=== PATIENT | female | born 1995 | race Caucasian/White ===

== ENCOUNTER 2017-05-11 15:46 | Emergency (ER) | payer OTHER ==
[~2017-05-11] VITALS: Wt 71.8 kg
[~2017-05-11 15:46] MED LIST: IBUP-1542 PO; MEDR10TA2 PO; NO CURRENT MEDS
--- NOTE | 2017-05-11 17:21 | ERD ---
ER Documentation Chief Complaint Chief Complaint HEMORROID BLEEDING AND PAIN HPI 21-year-old female with a history of hemorrhoids presents with a chief complaint of rectal bleeding. No change in symptoms over the past 2-3 months. Worse with riding bikes and lifting. States hemorrhoids protrude and do not spontaneously reduce but are reducible with manual reduction. No mucus described. Blood quantified as minimal and not worsening in quantity. Saw PCP yesterday who gave her a referral for surgery but gave her an [id number] cream and she is wanting something stronger. Denies dizziness, lightheadedness , constipation, fever or chills. Patient has no other complaints and describes no other associated manifestations. Nursing notes have been reviewed and are consistent with history given. ROS All systems reviewed and are negative except as per history of present illness. Medications Home Meds Active Scripts Ibuprofen* (Motrin*) 600 Mg Tab, 600 MG PO Q6, #14 TAB Prov:EVELYN RODRIGUEZ MD 06/01/15 Medroxyprogesterone Acetate* (Provera*) 10 Mg Tablet, 10 MG PO DAILY for 5 Days , TAB Prov:EVELYN RODRIGUEZ MD 06/01/15 Reported Medications [No Current Meds] No Conflict Check 03/05/10 Allergies Allergies: Coded Allergies: No Known Drug Allergies (Verified Allergy, Mild, 06/01/15) PMhx/Soc Medical and Surgical Hx: pt denies Medical Hx, pt denies Surgical Hx History of Surgery: No Anesthesia Reaction: No Hx Neurological Disorder: No Hx Respiratory Disorders: No Hx Cardiac Disorders: No Hx Psychiatric Problems: No Hx Miscellaneous Medical Probl: No Hx Alcohol Use: No Hx Substance Use: No Hx Tobacco Use: No Smoking Status: Never smoker Physical Exam Vitals Vital Signs Date Time Temp Pulse Resp B/P Pulse Ox O2 Delivery O2 Flow Rate FiO2 05/11/17 15:53 98.2 75 20 120/80 99 Physical Exam Head: Atraumatic Eyes: Normal Conjunctiva Resp: Clear to auscultation bilaterally Cardio: Regular rate and rhythm, no murmurs. Cap refill less than 2 seconds. Radial pulses 2+ bilaterally. Abd: Soft, non tender, non distended. Normal bowel sounds Neur: Awake and alert Psych: Normal Mood and Affect Procedures/MDM 21-year-old female presents with signs and symptoms most consistent with stage III internal hemorrhoids. Patient is on the correct medications given by PCP. I discussed with her about the importance of following up with surgery as previously discussed with her PCP. Patient has verbally respond that she understands. Sufficient education was discussed with the patient concerning her condition.She have verbally responded that they understand their status and treatment plan. The patients vitals are stable, and their current condition is appropriate for discharge. The patient will be given discharge instructions with return precautions. Departure Diagnosis: Primary Impression: Hemorrhoids Hemorrhoid type: third degree Qualified Code: K64.2 - Grade III hemorrhoids Condition: Stable Patient Instructions: Treating Hemorrhoids: Self-Care, Treating Hemorrhoids: Surgery Referrals: VIJAY MARTINEZ MD,MAINE DOLAN MD,ROBERT GORDON,NARINDER CLAROS,LEOBARDO WESLEY,[facility] YOU HAVE RECEIVED A MEDICAL SCREENING EXAM AND THE RESULTS INDICATE THAT YOU DO NOT HAVE A CONDITION THAT REQUIRES URGENT TREATMENT IN THE EMERGENCY DEPARTMENT. FURTHER EVALUATION AND TREATMENT OF YOUR CONDITION CAN WAIT UNTIL YOU ARE SEEN IN YOUR DOCTORS OFFICE WITHIN THE NEXT 1-2 DAYS. IT IS YOUR RESPONSIBILITY TO MAKE AN APPOINTMENT FOR FOLOW-UP CARE. IF YOU HAVE A PRIMARY DOCTOR --you should call your primary doctor and schedule and appointment IF YOU DO NOT HAVE A PRIMARY DOCTOR YOU CAN CALL OUR PHYSICIAN REFERRAL HOTLINE AT . IF YOU CAN NOT AFFORD TO SEE A PHYSICIAN YOU CAN CHOSE FROM THE FOLLOWING [facility] INSTITUTIONS: [facility] [address] [place] [address] [facility] [address] [place] [address] [facility] [address] [place] [address] [facility] () Usted se aviles hecho un examen mdico de control que le indica que no est en barbara condicin que requiera tratamiento urgente en el Departamento de Emergencia. Un estudio ms profundo y el tratamiento de matias condicin pueden esperar sin ningn riesgo hasta que usted sea atendida/o en el consultorio de matias mdico o barbara cl brynn. Es responsabilidad suya arreglar barbara nabeel para el seguimiento del saima. MANEJO DE CONDICIONES NO URGENTES EN EL FUTURO 1) Si usted tiene un mdico de atencin primaria: Usted debera llamar a matias mdico de atencin primaria antes de venir al departamento de emergencia. Despus de las horas de consultorio, matias doctor o matias asociado/a est disponible por telfono. El mdico o enfermero de artie en el servicio telefnico puede asesorarle por nalini medio para atender el problema, o saima contrario se puede programar barbara nabeel. 2) Si usted no tiene un mdico de atencin primaria: Llame al mdico o condado institucions de referencia que aparece abajo marcelina las horas de consultorio para hacer barbara nabeel para que le vean. SI USTED NO PUEDE PAGAR PARA KELLIE UN MEDICO puede ir a: [facility] [address] [place] [address] [facility] [address] [place] [address] [facility] [address] [place] [address] [place] [phone] Additional Instructions: Follow up with your PCP within the next 1-3 days for a more thorough evaluation and a possible referral to a specialist. Return the the emergency department immediately if symptoms worsen or change. If you have any questions regarding medications, ask your pharmacist or us before you leave. If any adverse reactions occur while taking your medications, discontinue the treatment and return to the emergency department immediately. Take your medications as directed, and complete the entire course of treatment. LOIS MEDINA PA-C May 11, 2017 17:21
--- NOTE | 2017-05-11 17:21 | ERD ---
ER Documentation Chief Complaint Chief Complaint HEMORROID BLEEDING AND PAIN HPI 21-year-old female with a history of hemorrhoids presents with a chief complaint of rectal bleeding. No change in symptoms over the past 2-3 months. Worse with riding bikes and lifting. States hemorrhoids protrude and do not spontaneously reduce but are reducible with manual reduction. No mucus described. Blood quantified as minimal and not worsening in quantity. Saw PCP yesterday who gave her a referral for surgery but gave her an [id number] cream and she is wanting something stronger. Denies dizziness, lightheadedness , constipation, fever or chills. Patient has no other complaints and describes no other associated manifestations. Nursing notes have been reviewed and are consistent with history given. ROS All systems reviewed and are negative except as per history of present illness. Medications Home Meds Active Scripts Ibuprofen* (Motrin*) 600 Mg Tab, 600 MG PO Q6, #14 TAB Prov:EVELYN RODRIGUEZ MD 06/01/15 Medroxyprogesterone Acetate* (Provera*) 10 Mg Tablet, 10 MG PO DAILY for 5 Days , TAB Prov:EVELYN RODRIGUEZ MD 06/01/15 Reported Medications [No Current Meds] No Conflict Check 03/05/10 Allergies Allergies: Coded Allergies: No Known Drug Allergies (Verified Allergy, Mild, 06/01/15) PMhx/Soc Medical and Surgical Hx: pt denies Medical Hx, pt denies Surgical Hx History of Surgery: No Anesthesia Reaction: No Hx Neurological Disorder: No Hx Respiratory Disorders: No Hx Cardiac Disorders: No Hx Psychiatric Problems: No Hx Miscellaneous Medical Probl: No Hx Alcohol Use: No Hx Substance Use: No Hx Tobacco Use: No Smoking Status: Never smoker Physical Exam Vitals Vital Signs Date Time Temp Pulse Resp B/P Pulse Ox O2 Delivery O2 Flow Rate FiO2 05/11/17 15:53 98.2 75 20 120/80 99 Physical Exam Head: Atraumatic Eyes: Normal Conjunctiva Resp: Clear to auscultation bilaterally Cardio: Regular rate and rhythm, no murmurs. Cap refill less than 2 seconds. Radial pulses 2+ bilaterally. Abd: Soft, non tender, non distended. Normal bowel sounds Neur: Awake and alert Psych: Normal Mood and Affect Procedures/MDM 21-year-old female presents with signs and symptoms most consistent with stage III internal hemorrhoids. Patient is on the correct medications given by PCP. I discussed with her about the importance of following up with surgery as previously discussed with her PCP. Patient has verbally respond that she understands. Sufficient education was discussed with the patient concerning her condition.She have verbally responded that they understand their status and treatment plan. The patients vitals are stable, and their current condition is appropriate for discharge. The patient will be given discharge instructions with return precautions. Departure Diagnosis: Primary Impression: Hemorrhoids Hemorrhoid type: third degree Qualified Code: K64.2 - Grade III hemorrhoids Condition: Stable Patient Instructions: Treating Hemorrhoids: Self-Care, Treating Hemorrhoids: Surgery Referrals: VIJAY MARTINEZ MD,MAINE DOLAN MD,ROBERT GORDON,NARINDER CLAROS,LEOBARDO WESLEY,[facility] YOU HAVE RECEIVED A MEDICAL SCREENING EXAM AND THE RESULTS INDICATE THAT YOU DO NOT HAVE A CONDITION THAT REQUIRES URGENT TREATMENT IN THE EMERGENCY DEPARTMENT. FURTHER EVALUATION AND TREATMENT OF YOUR CONDITION CAN WAIT UNTIL YOU ARE SEEN IN YOUR DOCTORS OFFICE WITHIN THE NEXT 1-2 DAYS. IT IS YOUR RESPONSIBILITY TO MAKE AN APPOINTMENT FOR FOLOW-UP CARE. IF YOU HAVE A PRIMARY DOCTOR --you should call your primary doctor and schedule and appointment IF YOU DO NOT HAVE A PRIMARY DOCTOR YOU CAN CALL OUR PHYSICIAN REFERRAL HOTLINE AT . IF YOU CAN NOT AFFORD TO SEE A PHYSICIAN YOU CAN CHOSE FROM THE FOLLOWING [facility] INSTITUTIONS: [facility] [address] [place] [address] [facility] [address] [place] [address] [facility] + [facility] [address] [place] [address] [facility] () Usted se aviles hecho un examen mdico de control que le indica que no est en barbara condicin que requiera tratamiento urgente en el Departamento de Emergencia. Un estudio ms profundo y el tratamiento de matias condicin pueden esperar sin ningn riesgo hasta que usted sea atendida/o en el consultorio de matias mdico o barbara cl brynn. Es responsabilidad suya arreglar barbara nabeel para el seguimiento del saima. MANEJO DE CONDICIONES NO URGENTES EN EL FUTURO 1) Si usted tiene un mdico de atencin primaria: Usted debera llamar a matias mdico de atencin primaria antes de venir al departamento de emergencia. Despus de las horas de consultorio, matias doctor o matias asociado/a est disponible por telfono. El mdico o enfermero de artie en el servicio telefnico puede asesorarle por nalini medio para atender el problema, o saima contrario se puede programar barbara nabeel. 2) Si usted no tiene un mdico de atencin primaria: Llame al mdico o condado institucions de referencia que aparece abajo marcelina las horas de consultorio para hacer barbara nabeel para que le vean. SI USTED NO PUEDE PAGAR PARA KELLIE UN MEDICO puede ir a: [facility] [address] [place] [address] [facility] [address] [place] [address] [facility] [address] [place] [address] [place] [phone] Additional Instructions: Follow up with your PCP within the next 1-3 days for a more thorough evaluation and a possible referral to a specialist. Return the the emergency department immediately if symptoms worsen or change. If you have any questions regarding medications, ask your pharmacist or us before you leave. If any adverse reactions occur while taking your medications, discontinue the treatment and return to the emergency department immediately. Take your medications as directed, and complete the entire course of treatment. LOIS MEDINA PA-C May 11, 2017 17:21
--- NOTE | 2017-05-11 17:21 | ERD ---
ER Documentation Chief Complaint Chief Complaint HEMORROID BLEEDING AND PAIN HPI 21-year-old female with a history of hemorrhoids presents with a chief complaint of rectal bleeding. No change in symptoms over the past 2-3 months. Worse with riding bikes and lifting. States hemorrhoids protrude and do not spontaneously reduce but are reducible with manual reduction. No mucus described. Blood quantified as minimal and not worsening in quantity. Saw PCP yesterday who gave her a referral for surgery but gave her an [id number] cream and she is wanting something stronger. Denies dizziness, lightheadedness , constipation, fever or chills. Patient has no other complaints and describes no other associated manifestations. Nursing notes have been reviewed and are consistent with history given. ROS All systems reviewed and are negative except as per history of present illness. Medications Home Meds Active Scripts Ibuprofen* (Motrin*) 600 Mg Tab, 600 MG PO Q6, #14 TAB Prov:EVELYN RODRIGUEZ MD 06/01/15 Medroxyprogesterone Acetate* (Provera*) 10 Mg Tablet, 10 MG PO DAILY for 5 Days , TAB Prov:EVELYN RODRIGUEZ MD 06/01/15 Reported Medications [No Current Meds] No Conflict Check 03/05/10 Allergies Allergies: Coded Allergies: No Known Drug Allergies (Verified Allergy, Mild, 06/01/15) PMhx/Soc Medical and Surgical Hx: pt denies Medical Hx, pt denies Surgical Hx History of Surgery: No Anesthesia Reaction: No Hx Neurological Disorder: No Hx Respiratory Disorders: No Hx Cardiac Disorders: No Hx Psychiatric Problems: No Hx Miscellaneous Medical Probl: No Hx Alcohol Use: No Hx Substance Use: No Hx Tobacco Use: No Smoking Status: Never smoker Physical Exam Vitals Vital Signs Date Time Temp Pulse Resp B/P Pulse Ox O2 Delivery O2 Flow Rate FiO2 05/11/17 15:53 98.2 75 20 120/80 99 Physical Exam Head: Atraumatic Eyes: Normal Conjunctiva Resp: Clear to auscultation bilaterally Cardio: Regular rate and rhythm, no murmurs. Cap refill less than 2 seconds. Radial pulses 2+ bilaterally. Abd: Soft, non tender, non distended. Normal bowel sounds Neur: Awake and alert Psych: Normal Mood and Affect Procedures/MDM 21-year-old female presents with signs and symptoms most consistent with stage III internal hemorrhoids. Patient is on the correct medications given by PCP. I discussed with her about the importance of following up with surgery as previously discussed with her PCP. Patient has verbally respond that she understands. Sufficient education was discussed with the patient concerning her condition.She have verbally responded that they understand their status and treatment plan. The patients vitals are stable, and their current condition is appropriate for discharge. The patient will be given discharge instructions with return precautions. Departure Diagnosis: Primary Impression: Hemorrhoids Hemorrhoid type: third degree Qualified Code: K64.2 - Grade III hemorrhoids Condition: Stable Patient Instructions: Treating Hemorrhoids: Self-Care, Treating Hemorrhoids: Surgery Referrals: VIJAY MARTINEZ MD,MAINE DOLAN MD,ROBERT GORDON,NARINDER CLAROS,LEOBARDO WESLEY,[facility] YOU HAVE RECEIVED A MEDICAL SCREENING EXAM AND THE RESULTS INDICATE THAT YOU DO NOT HAVE A CONDITION THAT REQUIRES URGENT TREATMENT IN THE EMERGENCY DEPARTMENT. FURTHER EVALUATION AND TREATMENT OF YOUR CONDITION CAN WAIT UNTIL YOU ARE SEEN IN YOUR DOCTORS OFFICE WITHIN THE NEXT 1-2 DAYS. IT IS YOUR RESPONSIBILITY TO MAKE AN APPOINTMENT FOR FOLOW-UP CARE. IF YOU HAVE A PRIMARY DOCTOR --you should call your primary doctor and schedule and appointment IF YOU DO NOT HAVE A PRIMARY DOCTOR YOU CAN CALL OUR PHYSICIAN REFERRAL HOTLINE AT . IF YOU CAN NOT AFFORD TO SEE A PHYSICIAN YOU CAN CHOSE FROM THE FOLLOWING [facility] INSTITUTIONS: [facility] [address] [place] [address] [facility] [address] [place] [address] [facility] [address] [place] [address] [facility] () Usted se aviles hecho un examen mdico de control que le indica que no est en barbara condicin que requiera tratamiento urgente en el Departamento de Emergencia. Un estudio ms profundo y el tratamiento de matias condicin pueden esperar sin ningn riesgo hasta que usted sea atendida/o en el consultorio de matias mdico o barbara cl brynn. Es responsabilidad suya arreglar barbara nabeel para el seguimiento del saima. MANEJO DE CONDICIONES NO URGENTES EN EL FUTURO 1) Si usted tiene un mdico de atencin primaria: Usted debera llamar a matias mdico de atencin primaria antes de venir al departamento de emergencia. Despus de las horas de consultorio, matias doctor o matias asociado/a est disponible por telfono. El mdico o enfermero de artie en el servicio telefnico puede asesorarle por nalini medio para atender el problema, o saima contrario se puede programar barbara nabeel. 2) Si usted no tiene un mdico de atencin primaria: Llame al mdico o condado institucions de referencia que aparece abajo marcelina las horas de consultorio para hacer barbara nabeel para que le vean. SI USTED NO PUEDE PAGAR PARA KELLIE UN MEDICO puede ir a: [facility] [address] [place] [address] [facility] [address] [place] [address] [facility] [address] [place] [address] [place] [phone] Additional Instructions: Follow up with your PCP within the next 1-3 days for a more thorough evaluation and a possible referral to a specialist. Return the the emergency department immediately if symptoms worsen or change. If you have any questions regarding medications, ask your pharmacist or us before you leave. If any adverse reactions occur while taking your medications, discontinue the treatment and return to the emergency department immediately. Take your medications as directed, and complete the entire course of treatment. LOIS MEDINA PA-C May 11, 2017 17:21
== END 2017-05-11 17:21 | disposition home or self-care (01) ==
LOC: FTE 15:46
DX: K64.2 Third degree hemorrhoids (principal)
CPT/HCPCS: 99282